=== PATIENT | male | born 1950 | race Caucasian/White ===

== ENCOUNTER 2018-03-19 17:22 | Inpatient (IN) | payer MEDICARE, MEDICAID ==
[2018-03-19 18:52] LABS: % BASOPHILS 1.1 % (0.0-2.0); % EOSINOPHILS 9.1 % (0.0-5.0); % LYMPHOCYTES 36.3 % (20.0-50.0); % NEUTROPHILS 45.5 % (40.0-80.0); EOSINOPHILE ABSOLUTE 0.3 Th/cmm (0.1-0.4); HEMATOCRIT 42.4 % (41.0-60); HEMOGLOBIN 14.3 gm/dL (12-16); LYMPHOCYTE ABSOLUTE 1.3 Th/cmm (1.5-3.0); MEAN CELL VOLUME 89.9 fl (80-99); MEAN CORPUSCULAR HEMOGLOBIN 30.2 pg (27.0-31.0); MEAN CORPUSCULAR HGB CONC 33.6 pg (28.0-36.0); MEAN PLATELET VOLUME 8.2 fl; MONOCYTE ABSOLUTE 0.3 Th/cmm (0.3-1.0); NEUTROPHILE ABSOLUTE 1.6 Th/cmm (1.8-8.0); PLATELET COUNT 188 Th/cmm (150-400); RED BLOOD COUNT 4.72 Mil/cmm (3.80-5.80); RED CELL DISTRIBUTION WIDTH 13.1 % (11.5-20.0)
[2018-03-19 19:02] LABS: WHITE BLOOD COUNT 3.5 Th/cmm (4.8-10.8)
[2018-03-19 19:12] LABS: ALBUMIN 3.7 gm/dL (4.2-5.5); ALKALINE PHOSPHATASE 61 U/L (34-104); ANION GAP 9.5 (7.0-16.0); BILIRUBIN,TOTAL 0.4 mg/dL (0.3-1.0); BUN - UREA NITROGEN 14 mg/dL (7-25); CALCIUM SERUM 9.3 mg/dL (8.6-10.3); CARBON DIOXIDE 29.2 mEq/L (21.0-31.0); CHLORIDE 102 mEq/L (98-107); CREATININE - SERUM 0.7 mg/dL (0.7-1.3); GFR AFRICAN-AMERICAN > 60.0 ml/min (>90); GFR NON AFRICAN-AMERICAN > 60.0 ml/min; GLUCOSE 141 mg/dL (70-105); LIPASE 27 U/L (11-82); POTASSIUM SERUM 3.7 mEq/L (3.5-5.1); SGOT 189 U/L (13-39); SGPT/ALT 194 U/L (7-52); SODIUM SERUM 137 mEq/L (136-145); TOTAL PROTEIN,SERUM 7.3 gm/dL (6.0-8.3)
[2018-03-19 19:15] LABS: BILIRUBIN,DIRECT 0.09 mg/dL (0.0-0.2)
[2018-03-19 20:11] VITALS: BP 139/65
[2018-03-19] MEDS ORDERED: Maalox 30 mL Cup PO PRN ×2 (20:11→22:17)
[2018-03-19] MEDS ORDERED: Magnesium Hydroxide (MOM) 30 mL UDC PO PRN (20:11)
[2018-03-19] MEDS ORDERED: Pneumococcal Vaccine 0.5 mL Vial IM ONE (21:40)
[2018-03-19] MEDS ORDERED: Albuterol Nebulizer 2.5mg/3mL HHN PRN (22:17)
[2018-03-19] MEDS ORDERED: guaiFENesin 200 MG/10 ML UDC PO PRN (22:17)
[2018-03-19] MEDS ORDERED: Ipratropium Neb 0.5 mg/2.5 mL UD HHN PRN (22:17)
[2018-03-20] MEDS ORDERED: Haloperidol Lactate 5 mg/mL 1mL Vial IM ONE (06:25)
--- NOTE | 2018-03-20 07:55 | Diagnostic Imaging Report ---
CHEST X-RAY: AP view INDICATION: Mass COMPARISON: None FINDINGS: Bibasal atelectatic changes are noted. There is no focal consolidation or pleural effusions The heart is normal in size. Degenerative changes of the spine are noted. IMPRESSION: Bibasal atelectatic changes. No focal consolidation identified. No obvious mass lesion identified. Note that the sensitivity of x-rays for detection of pulmonary nodules and masses is low. If there is clinical concern or history of malignancy, CT examination is recommended for further assessment.
[2018-03-20] MEDS: Multivitamin Tab PO SCH (08:20)
--- NOTE | 2018-03-20 13:14 | Internal Medicine Prog Note ---
Internal Medicine Subjective - Subjective Service Date: 03/20/18 ([facility] [id number]) Internal Medicine Objective - Results Result Diagrams: 03/19/18 18:44 03/19/18 18:44 Recent Labs: Laboratory Last Values WBC 3.5 Th/cmm (4.8-10.8) L 03/19/18 18:44 RBC 4.72 Mil/cmm (3.80-5.80) 03/19/18 18:44 Hgb 14.3 gm/dL (12-16) 03/19/18 18:44 Hct 42.4 % (41.0-60) 03/19/18 18:44 MCV 89.9 fl (80-99) 03/19/18 18:44 MCH 30.2 pg (27.0-31.0) 03/19/18 18:44 MCHC Differential 33.6 pg (28.0-36.0) 03/19/18 18:44 RDW 13.1 % (11.5-20.0) 03/19/18 18:44 Plt Count 188 Th/cmm (150-400) 03/19/18 18:44 MPV 8.2 fl 03/19/18 18:44 Neutrophils % 45.5 % (40.0-80.0) 03/19/18 18:44 Lymphocytes % 36.3 % (20.0-50.0) 03/19/18 18:44 Monocytes % 8.0 % (2.0-10.0) 03/19/18 18:44 Eosinophils % 9.1 % (0.0-5.0) H 03/19/18 18:44 Basophils % 1.1 % (0.0-2.0) 03/19/18 18:44 Sodium 137 mEq/L (136-145) 03/19/18 18:44 Potassium 3.7 mEq/L (3.5-5.1) 03/19/18 18:44 Chloride 102 mEq/L (98-107) 03/19/18 18:44 Carbon Dioxide 29.2 mEq/L (21.0-31.0) 03/19/18 18:44 Anion Gap 9.5 (7.0-16.0) 03/19/18 18:44 BUN 14 mg/dL (7-25) 05/08/18 18:44 Creatinine 0.7 mg/dL (0.7-1.3) 03/19/18 18:44 Est GFR ( Amer) > 60.0 ml/min (>90) 03/19/18 18:44 Est GFR (Non-Af Amer) > 60.0 ml/min 03/19/18 18:44 BUN/Creatinine Ratio 20.0 03/19/18 18:44 Glucose 141 mg/dL (70-105) H 03/19/18 18:44 Calcium 9.3 mg/dL (8.6-10.3) 03/19/18 18:44 Magnesium 2.0 mg/dL (1.9-2.7) 03/19/18 18:44 Total Bilirubin 0.4 mg/dL (0.3-1.0) 03/19/18 18:44 Direct Bilirubin 0.09 mg/dL (0.0-0.2) 03/19/18 18:44 AST 189 U/L (13-39) H 03/19/18 18:44 ALT 194 U/L (7-52) H 03/19/18 18:44 Alkaline Phosphatase 61 U/L (34-104) 03/19/18 18:44 Total Protein 7.3 gm/dL (6.0-8.3) 03/19/18 18:44 Albumin 3.7 gm/dL (4.2-5.5) L 03/19/18 18:44 Globulin 3.6 gm/dL 03/19/18 18:44 Albumin/Globulin Ratio 1.0 (1.0-1.8) 03/19/18 18:44 Lipase 27 U/L (11-82) 03/19/18 18:44 - Physical Exam Vitals and I&O: Vital Signs Temp 98.7 F 03/20/18 05:57 Pulse 84 03/20/18 05:57 Resp 20 03/20/18 05:57 BP 165/83 03/20/18 05:57 Pulse Ox 95 03/20/18 05:57 Intake & Output 03/19/18 03/20/18 03/20/18 18:59 06:59 18:59 Intake Total 280 Balance 280 Intake: Oral 280 Active Medications: Current Medications Acetaminophen (Tylenol) 650 mg PO Q4HR PRN PRN Reason: Mild Pain / Temp above 100 Stop: 05/18/18 20:10 Al Hydrox/Mg Hydrox/Simethicone (Maalox) 30 ml PO Q4HR PRN PRN Reason: GI DISTRESS Stop: 05/18/18 20:10 Albuterol Sulfate (Albuterol 2.5mg/3ml Neb Ud) 2.5 mg HHN Q2HRT PRN PRN Reason: Shortness of Breath or Wheeze Stop: 05/18/18 22:16 Aspirin (Ecotrin) 81 mg PO DAILY [facility] Stop: 05/19/18 08:59 Last Admin: 03/20/18 08:20 Dose: Not Given Guaifenesin (Robitussin) 200 mg PO Q4HR PRN PRN Reason: Cough or Congestion Stop: 05/18/18 22:16 Ipratropium [place] (Atrovent Neb 0.5mg/2.5ml) 0.5 mg HHN Q2HRT PRN PRN Reason: Shortness of Breath or Wheeze Stop: 05/18/18 22:16 Lorazepam (Ativan) 0.5 mg PO Q4HR PRN; Protocol PRN Reason: Anxiety Stop: 04/18/18 20:10 Magnesium Hydroxide (Milk Of Magnesia) 30 ml PO HS PRN PRN Reason: Constipation Multivitamins/Vitamin C (Theragran) 1 tab PO DAILY [facility] Stop: 05/19/18 08:59 Last Admin: 03/20/18 08:20 Dose: Not Given Zolpidem Tartrate (Ambien) 5 mg PO HS PRN PRN Reason: Insomnia Stop: 05/18/18 20:10
--- NOTE | 2018-03-20 15:35 | History & Physical ---
ADMIT DATE: 03/20/2018 HISTORY OF PRESENT ILLNESS: This is a 68-year-old male who is admitted to the [facility], who is on 5150 due to swinging golf club towards children at the park. Upon examination, the patient is awake, alert, sexually inappropriate. PAST MEDICAL HISTORY: Psychosis. PAST SURGICAL HISTORY: None per patient. ALLERGIES: No known drug allergies. SOCIAL HISTORY: The patient smokes cigarettes. Denies any alcohol or illicit drug usage. FAMILY HISTORY: Noncontributory. REVIEW OF SYSTEMS: Unable to obtain at this time. The patient is uncooperative answering questions. PHYSICAL EXAMINATION: GENERAL: The patient is well-developed, well-nourished, in no apparent distress. VITAL SIGNS: Temperature 98.7, heart rate 84, blood pressure 165/83, respirations 20, O2 95%. HEENT: Head normocephalic, atraumatic. NECK: Supple. No mass. LUNGS: Clear bilaterally. HEART: Regular rate and rhythm. ABDOMEN: Soft, nontender. LABORATORY DATA: WBC 3.5, H and H 14.3 and 42.4, platelet of 188. Sodium 137, potassium 3.7, chloride 102, BUN 14, creatinine 0.7, glucose of 141. Albumin 3.7. The patient had a chest x-ray done in the ER and the impression is bibasilar atelectatic changes, no focal consolidation identified. No obvious mass lesion identified. ASSESSMENT: Leukopenia, mild protein-calorie malnutrition, psychosis. PLAN: We will get patient's baseline lipid panel, hemoglobin A1c. We will wait for patient's urinalysis results. We will get hepatitis panel. We will continue to follow this patient. JOB# [id number]
--- NOTE | 2018-03-20 17:42 | ER Physician Documentation ---
DATE OF SERVICE: 03/19/2018 HISTORY OF PRESENT ILLNESS: The patient has been given 5150 because the patient came from the long-term and it is written over here that the patient was swinging a golf club ball at the [employer] and that is why he is on 5150. The patient came from [facility]. The patient will be under Dr. Juarez and Dr. Brown. The patient was sent over here. The patient is not talking and giving any history. The patient was sent over here for medical evaluation. The patient does not answer any significant questions, tries to give me all other history about his going here and going there. The patient has no symptoms of killing anybody. No symptoms of killing himself. The patient was seen by the triage nurse. PHYSICAL EXAMINATION: VITAL SIGNS: Temperature 97.9, pulse 85, respirations 16, blood pressure 166/72, and oxygen saturation 97%. Height is 5 feet 9 inches, weight 150 pounds. The patient has psychosis. The patient's date of is 1950. Medical number is [id number]. number is [id number]. The patient came from the long-term. The history was taken by reviewing most of the things from the chart and not from the patient because he is not very cooperative in giving any history. REVIEW OF SYSTEMS: He is not giving any history except for the fracture in the left ankle where he has a lyla in place. He had two surgery in the left ankle. Otherwise, no other complaints. He is again complaining in the referral sheet, says he is challenging and swinging a golf club at the [employer]. Diagnosis is psychosis, current location is [facility], telephone #[phone]. The patient's finger is verified. The patient medical doctor is Dr. Brown and the patient's psychiatrist's name is Dr. Juarez. The patient's disposition, he will be admitted. Once I find out that the patient does not have any medical problem, the patient will be sent for psychiatric evaluation and treatment. The patient was getting at the other place Atarax 0.5 mg p.r.n. p.o., was given ____ 50 mg p.r.n. p.o. for increased agitation and anxiety. Around 8:55 after 1 hour, the patient's blood pressure was 157/75, decreased agitation, but remains delusional, disorganized, anxious, making bizarre statements. The patient wanted to communicate with me and asked me many questions and it was told that we will discuss more history about him tomorrow, but at the present moment, I need to make sure that I take care of him. He is white. The patient's review of systems could not be obtained. The patient does not say. Personal history negron according to him, he was and he said he has a son just to give the son his name, so he can join the [employer]. He is unemployed. Education negron, he has masters in something whether this is true or not, I am not sure. In the Emergency notification information to be going ____ relationship is other. . The patient's physical condition is homeless and his physical address is [address] [place] [address]. Family phone #[phone]. The patient's date of is 1950. He does speak Tuvaluan. He has a choice Medicare eligibility. The patient has Medicare part D also. The patient's past history otherwise is benign and negative. The patient does not answer whether he was admitted at another facility or not is not submitted. The patient's EKG was done, which showed normal sinus rhythm with minor nonspecific ST changes, poor R-wave progression from V1-V3. One cannot definitely rule out any myocardial infarction. I doubt it, but it is possible that the patient can have a myocardial infarction on the chest. The patient does not have any surgical scar. The patient never had any myocardial infarctions and looking at this EKG, I cannot say that this has myocardial infarction as the R wave from V3-V4 is only 5 or 6 mm, it should be more than that to call it as a possible myocardial infarction. He is disorganized, anxious, bizarre statements. CURRENT MEDICATIONS. I told you if I find something else, I will let you know. PHYSICAL EXAMINATION: GENERAL: The patient appears to be awake, alert, oriented, not in any acute cardiorespiratory distress. The patient appears to be at least 10 years older than the stated age. HEENT: Conjunctivae pink. Sclerae white. HEENT: Normal. NECK: Jugular venous pressure is normal. Carotids are normal. Normal uplift. EXTREMITIES: On the left leg, the patient has a surgical scar and the patient has a two surgery done on the left ankle and on the right calf, the patient has a fracture, but no history of any metal implants in the right side. The patient is unemployed as I mentioned earlier. The patient has some home health and hospice, home health certification is present. The above person's condition was called to the attention of the hospital staff and [employer] offices from [facility], responded to 911 calls repeating client was challenging and swinging a golf club with the children, officers were able to engage and detain client at the [facility] for mental evaluation. Upon evaluation, the client reports becoming upset after his ____ was not in place, he has left in the night before 911 called and officers reported, accusing them, his feelings so far client endorse having a history of mood swings and health symptoms,. So, the patient was seen by the hospital police detention attendant and the patient was referred over here. The patient's ability is noncompliant. Primary ICD code #F29, unspecific psychosis. Let us see if I can find some more detailed history. No more history is detected. PHYSICAL EXAMINATION: GENERAL: The patient appears to be awake, alert, oriented, not in any acute distress. General exam is benign and negative as I mentioned surgical scar in the left lower extremity at the ankle is present and the patient's general exam is otherwise normal. NECK: Clear. There is no evidence of any meningeal signs. CHEST: Clear. No rales, rhonchi, or bronchial breathing. ABDOMEN: Soft, benign, and negative. Liver, spleen not enlarged. No peripheral edema in the abdominal cavity. CENTRAL NERVOUS SYSTEM: The patient has psychosis, but he does not want to kill anybody, he does not want to kill himself at the present moment. The patient was angry, was given some food, two sandwiches. One sandwich I gave him personally, tuna sandwiches and one was given by the nurse. The patient's vital signs were temperature was 97.9, pulse of 85, respirations 16, blood pressure 166/72, and oxygen saturation 97%. Height is 5 feet 9 inches, weight is 150 pounds. The patient takes drug according to them, they wrote methamphetamine. Chest appears to be clear without any rales, rhonchi, or bronchial breathing. Trachea being central. No emphysematous chest wall. No deformity of the chest wall. No pacemaker on the chest wall. No scar on the chest wall. Heart reveals PMI is located in the fifth intercostal space in the midclavicular line. S1, S2 are normal. Third heart sound is absent. Fourth heart sound is present. No abnormal murmur. There is no diastolic abnormal murmur. No systolic abnormal murmur is found. Central nervous system is otherwise psychosis, but otherwise sitting on the ____ on the belly and in the upper part of the abdomen, there are some black campbell seen on the belly. He does not know why it is. He says it may be allergic to the drugs or whatever he does not know. He does not give a dam about why it is there. On the right testicle, the patient has what looks like the right testicle is removed and a ball or something like that is inserted over there that he did not let me touch it or come close but he shows me from a distance and this is what it looks like from a distance. The patient's abdomen is otherwise soft, benign, and negative. Liver, spleen not enlarged. No free fluid in the abdominal cavity. Central nervous system is within normal limits. CLINICAL IMPRESSION: 1. The patient has psychosis. 2. The patient has left ankle joint injury and surgery twice, and the patient has a metal lyla in the left ankle for surgery. 3. The patient has an injury to the right ankle also. 4. The patient has multiple black colored scars of what reason whether it is reason being drug is not known. 5. The patient was swinging a golf ball at the [employer], hence the police called and kept him under 5150 and medically, the patient seems to be clear. Labs have been ordered. If the labs are okay, then, the patient could go to the psychiatric coe. The patient was angry and the patient's medical doctor is Dr. Bronw and the patient's psychiatric Dr. Juarez. The patient will be admitted. To the best of my knowledge, the patient came from [facility], telephone #[phone]. Once we get the lab reports, we will try and send the patient to the ____. JOB# [id number]
--- NOTE | 2018-03-21 00:37 | Psychosocial Evaluation ---
DATE OF SERVICE: 03/20/2018 IDENTIFYING DATA: The patient is a 68-year-old male, admitted here on a 5150 as a danger to others. CHIEF COMPLAINT: "I do not know." HISTORY OF PRESENT ILLNESS: This is the first psychiatric hospitalization to the [facility] for this patient who has been admitted here on a 5150 as a danger to others. As per the information, [employer] officers responded to the [place] [facility] responding to the 911 calls regarding this patient who is challenging and swinging a golf club at the [facility]. During the evaluation, the patient was not able to provide much of information and the patient has been very much upset and the patient had to be medicated. As per the information, the patient is reported to have gotten upset because he could not find his guitar where he has left the night before and the patient is reported to be very irritable and started to swing a golf club at the ____ and accusing them of stealing his guitar. The patient has been very irritable and angry. The patient is very disheveled at the time of the evaluation and is not able to care for self. PAST PSYCHIATRIC HISTORY: Details are not known. MEDICAL HISTORY: Physical examination is requested by Dr. Brown. SUBSTANCE ABUSE HISTORY: The patient is not providing any history of substance abuse. LEGAL PROBLEMS: None at this time. PHYSICAL AND SEXUAL ABUSE HISTORY: Details are not known. MENTAL STATUS EXAMINATION: The patient is 68 years old, looking his stated age, well-built, superficially cooperative. Eye contact is poor. Mood is noted to be irritable. Affect is constricted. Insight and judgment at this time are noted to be impaired. Impulse control seems to be limited. The patient has been having difficult time to cope with the stress. The patient is very paranoid and the patient is getting easily irritable. The patient has been very angry and upset and does not want to get into the details of what brought him in here. The patient has been given a dose of Haldol to contain his aggressive behavior. In view of his psychosis, I have decided to start the patient on 25 mg of the Seroquel at night time and encouraged the patient to verbalize the concerns rather than to act out. ESTIMATED LENGTH OF STAY: 5-7 days. DISCHARGE CRITERIA: When the patient is no longer a threat to self or others and will be able to cope up with the stress. JOB# [id number]
[2018-03-21 08:00] LABS: CHOLESTEROL 139 mg/dL (<200); HDL -HIGH DENSITY LIPOPROTEIN 44 mg/dL (23-92); TRIGLYCERIDES 106 mg/dL (<150)
[2018-03-21] MEDS: Multivitamin Tab PO SCH (09:25)
--- NOTE | 2018-03-21 13:22 | Internal Medicine Prog Note ---
Internal Medicine Subjective - Subjective Patient seen and examined:: with staff, chart reviewed Patient is:: awake, verbal, interactive, ambulating, denies any new complaints, agitated Patient Complaints of:: unable to sleep Per staff patient has:: no adverse event, no episodes of fall, eating well, tolerating meds Internal Medicine Objective - Results Result Diagrams: 03/19/18 18:44 03/19/18 18:44 Recent Labs: Laboratory Last Values WBC 3.5 Th/cmm (4.8-10.8) L 03/19/18 18:44 RBC 4.72 Mil/cmm (3.80-5.80) 03/19/18 18:44 Hgb 14.3 gm/dL (12-16) 03/19/18 18:44 Hct 42.4 % (41.0-60) 03/19/18 18:44 MCV 89.9 fl (80-99) 03/19/18 18:44 MCH 30.2 pg (27.0-31.0) 03/19/18 18:44 MCHC Differential 33.6 pg (28.0-36.0) 03/19/18 18:44 RDW 13.1 % (11.5-20.0) 03/19/18 18:44 Plt Count 188 Th/cmm (150-400) 03/19/18 18:44 MPV 8.2 fl 03/19/18 18:44 Neutrophils % 45.5 % (40.0-80.0) 03/19/18 18:44 Lymphocytes % 36.3 % (20.0-50.0) 03/19/18 18:44 Monocytes % 8.0 % (2.0-10.0) 03/19/18 18:44 Eosinophils % 9.1 % (0.0-5.0) H 03/19/18 18:44 Basophils % 1.1 % (0.0-2.0) 03/19/18 18:44 Sodium 137 mEq/L (136-145) 03/19/18 18:44 Potassium 3.7 mEq/L (3.5-5.1) 03/19/18 18:44 Chloride 102 mEq/L (98-107) 03/19/18 18:44 Carbon Dioxide 29.2 mEq/L (21.0-31.0) 03/19/18 18:44 Anion Gap 9.5 (7.0-16.0) 03/19/18 18:44 BUN 14 mg/dL (7-25) 03/19/18 18:44 Creatinine 0.7 mg/dL (0.7-1.3) 03/19/18 18:44 Est GFR ( Amer) > 60.0 ml/min (>90) 03/19/18 18:44 Est GFR (Non-Af Amer) > 60.0 ml/min 03/19/18 18:44 BUN/Creatinine Ratio 20.0 03/19/18 18:44 Glucose 141 mg/dL (70-105) H 03/19/18 18:44 Calcium 9.3 mg/dL (8.6-10.3) 03/19/18 18:44 Magnesium 2.0 mg/dL (1.9-2.7) 03/19/18 18:44 Total Bilirubin 0.4 mg/dL (0.3-1.0) 03/19/18 18:44 Direct Bilirubin 0.09 mg/dL (0.0-0.2) 03/19/18 18:44 AST 189 U/L (13-39) H 03/19/18 18:44 ALT 194 U/L (7-52) H 03/19/18 18:44 Alkaline Phosphatase 61 U/L (34-104) 03/19/18 18:44 Total Protein 7.3 gm/dL (6.0-8.3) 03/19/18 18:44 Albumin 3.7 gm/dL (4.2-5.5) L 03/19/18 18:44 Globulin 3.6 gm/dL 03/19/18 18:44 Albumin/Globulin Ratio 1.0 (1.0-1.8) 03/19/18 18:44 Triglycerides 106 mg/dL (<150) 03/21/18 07:30 Cholesterol 139 mg/dL (<200) 03/21/18 07:30 LDL Cholesterol Direct 75 mg/dL (75-193) 03/21/18 07:30 HDL Cholesterol 44 mg/dL (23-92) 03/21/18 07:30 Lipase 27 U/L (11-82) 03/19/18 18:44 - Physical Exam Vitals and I&O: Vital Signs Temp 98.7 F 03/20/18 05:57 Pulse 91 03/21/18 07:15 Resp 20 03/21/18 07:15 BP 165/83 03/20/18 05:57 Pulse Ox 95 03/21/18 07:15 Intake & Output 03/20/18 03/21/18 03/21/18 18:59 06:59 18:59 Intake Total 1200 150 Balance 1200 150 Intake: Oral 1200 150 Other: # Voids 2 # Bowel Movements 1 Active Medications: Current Medications Acetaminophen (Tylenol) 650 mg PO Q4HR PRN PRN Reason: Mild Pain / Temp above 100 Stop: 05/18/18 20:10 Al Hydrox/Mg Hydrox/Simethicone (Maalox) 30 ml PO Q4HR PRN PRN Reason: GI DISTRESS Stop: 05/18/18 20:10 Albuterol Sulfate (Albuterol 2.5mg/3ml Neb Ud) 2.5 mg HHN Q2HRT PRN PRN Reason: Shortness of Breath or Wheeze Stop: 05/18/18 22:16 Aspirin (Ecotrin) 81 mg PO DAILY [facility] Stop: 05/19/18 08:59 Last Admin: 03/21/18 09:25 Dose: 81 mg Guaifenesin (Robitussin) 200 mg PO Q4HR PRN PRN Reason: Cough or Congestion Stop: 05/18/18 22:16 Ipratropium [place] (Atrovent Neb 0.5mg/2.5ml) 0.5 mg HHN Q2HRT PRN PRN Reason: Shortness of Breath or Wheeze Stop: 05/18/18 22:16 Lorazepam (Ativan) 0.5 mg PO Q4HR PRN; Protocol PRN Reason: Anxiety Stop: 04/18/18 20:10 Last Admin: 03/21/18 09:31 Dose: 0.5 mg Magnesium Hydroxide (Milk Of Magnesia) 30 ml PO HS PRN PRN Reason: Constipation Multivitamins/Vitamin C (Theragran) 1 tab PO DAILY [facility] Stop: 05/19/18 08:59 Last Admin: 03/21/18 09:25 Dose: 1 tab Quetiapine Fumarate (Seroquel) 25 mg PO HS [facility] PRN Reason: Protocol Stop: 05/19/18 20:59 Zolpidem Tartrate (Ambien) 5 mg PO HS PRN PRN Reason: Insomnia Stop: 05/18/18 20:10 General: alert HEENT: NC/AT, PERRLA, poor dentition Neck: Supple, No JVD, No thyromegaly Lungs: CTAB Cardiovascular: RRR, Normal S1, Normal S2, without murmur Abdomen: soft, non-tender, non-distended, positive bowel sound Extremities: excoriation Internal Medicine Assmt/Plan - Assessment Assessment: leukopenia malnutrition sad hyperglycemia elev lft - Plan Plan: will send hep panel fall precaution will send aic jazzy harper
[2018-03-21] MEDS ORDERED: Haloperidol Lactate 5 mg/mL 1mL Vial ONE (16:27)
[2018-03-21] MEDS ORDERED: Haloperidol Lactate 5 mg/mL 1mL Vial IM STA (16:42)
--- NOTE | 2018-03-21 23:52 | Progress Notes ---
DATE: 03/21/2018 SUBJECTIVE: Staff was spoken to. The patient is interviewed. Mood is irritable. Affect is constricted. Insight and judgment noted to be still impaired. Impulse control is noted to be very poor. The patient's coping skills are noted to be very poor. The patient has been testing the limits. The patient has been getting into other people's rooms and has been trying to distribute all materials. The patient has no insight into his illness and the patient has no place to return to. ASSESSMENT: The patient is grossly psychotic and impulsive. PLAN: To continue the patient with the supportive therapy and place the patient on Seroquel 50 mg and follow the patient and he is not ready to be returned to a lower level of care. JOB# [id number]
[2018-03-22 08:12] LABS: HEP A AB IGM Negative (Negative); HEP B CORE IGM Negative (Negative); HEP B SURFACE AG QL Negative (Negative); HEP C ANTIBODY >11.0 s/co ratio (0.0-0.9)
[2018-03-22] MEDS: Multivitamin Tab PO SCH (09:29)
--- NOTE | 2018-03-22 13:28 | Internal Medicine Prog Note ---
Internal Medicine Subjective - Subjective Patient seen and examined:: with staff, chart reviewed Patient is:: awake, verbal, interactive, ambulating, denies any new complaints, agitated Patient Complaints of:: unable to sleep Per staff patient has:: no adverse event, no episodes of fall, eating well, tolerating meds Internal Medicine Objective - Results Result Diagrams: 03/19/18 18:44 03/19/18 18:44 Recent Labs: Laboratory Last Values WBC 3.5 Th/cmm (4.8-10.8) L 03/19/18 18:44 RBC 4.72 Mil/cmm (3.80-5.80) 03/19/18 18:44 Hgb 14.3 gm/dL (12-16) 03/19/18 18:44 Hct 42.4 % (41.0-60) 03/19/18 18:44 MCV 89.9 fl (80-99) 03/19/18 18:44 MCH 30.2 pg (27.0-31.0) 03/19/18 18:44 MCHC Differential 33.6 pg (28.0-36.0) 03/19/18 18:44 RDW 13.1 % (11.5-20.0) 03/19/18 18:44 Plt Count 188 Th/cmm (150-400) 03/19/18 18:44 MPV 8.2 fl 03/19/18 18:44 Neutrophils % 45.5 % (40.0-80.0) 03/19/18 18:44 Lymphocytes % 36.3 % (20.0-50.0) 03/19/18 18:44 Monocytes % 8.0 % (2.0-10.0) 03/19/18 18:44 Eosinophils % 9.1 % (0.0-5.0) H 03/19/18 18:44 Basophils % 1.1 % (0.0-2.0) 03/19/18 18:44 Sodium 137 mEq/L (136-145) 03/19/18 18:44 Potassium 3.7 mEq/L (3.5-5.1) 03/19/18 18:44 Chloride 102 mEq/L (98-107) 03/19/18 18:44 Carbon Dioxide 29.2 mEq/L (21.0-31.0) 03/19/18 18:44 Anion Gap 9.5 (7.0-16.0) 03/19/18 18:44 BUN 14 mg/dL (7-25) 03/19/18 18:44 Creatinine 0.7 mg/dL (0.7-1.3) 03/19/18 18:44 Est GFR ( Amer) > 60.0 ml/min (>90) 03/19/18 18:44 Est GFR (Non-Af Amer) > 60.0 ml/min 03/19/18 18:44 BUN/Creatinine Ratio 20.0 03/19/18 18:44 Glucose 141 mg/dL (70-105) H 03/19/18 18:44 Hemoglobin A1c % 5.0 % (4.0-6.0) 03/21/18 07: Calcium 9.3 mg/dL (8.6-10.3) 03/19/18 18:44 Magnesium 2.0 mg/dL (1.9-2.7) 03/19/18 18:44 Total Bilirubin 0.4 mg/dL (0.3-1.0) 03/19/18 18:44 Direct Bilirubin 0.09 mg/dL (0.0-0.2) 03/19/18 18:44 AST 189 U/L (13-39) H 03/19/18 18:44 ALT 194 U/L (7-52) H 03/19/18 18:44 Alkaline Phosphatase 61 U/L (34-104) 03/19/18 18:44 Total Protein 7.3 gm/dL (6.0-8.3) 03/19/18 18:44 Albumin 3.7 gm/dL (4.2-5.5) L 03/19/18 18:44 Globulin 3.6 gm/dL 03/19/18 18:44 Albumin/Globulin Ratio 1.0 (1.0-1.8) 03/19/18 18:44 Triglycerides 106 mg/dL (<150) 03/21/18 07:30 Cholesterol 139 mg/dL (<200) 03/21/18 07:30 LDL Cholesterol Direct 75 mg/dL (75-193) 03/21/18 07:30 HDL Cholesterol 44 mg/dL (23-92) 03/21/18 07:30 Lipase 27 U/L (11-82) 03/19/18 18:44 Hepatitis A IgM Ab Negative (Negative) 03/21/18 07:30 Hep Bs Antigen Negative (Negative) 03/21/18 07:30 Hep B Core IgM Ab Negative (Negative) 03/21/18 07:30 Hepatitis C Antibody >11.0 s/co ratio (0.0-0.9) H 03/21/18 07:30 - Physical Exam Vitals and I&O: Vital Signs Temp 97.2 F 03/22/18 06:24 Pulse 79 03/22/18 08:02 Resp 20 03/22/18 08:02 BP 144/80 03/22/18 06:24 Pulse Ox 95 03/22/18 08:02 Intake & Output 03/21/18 03/22/18 03/22/18 18:59 06:59 18:59 Intake Total 120 Balance 120 Intake: Oral 120 Other: # Voids 2 Active Medications: Current Medications Acetaminophen (Tylenol) 650 mg PO Q4HR PRN PRN Reason: Mild Pain / Temp above 100 Stop: 05/18/18 20:10 Al Hydrox/Mg Hydrox/Simethicone (Maalox) 30 ml PO Q4HR PRN PRN Reason: GI DISTRESS Stop: 05/18/18 20:10 Albuterol Sulfate (Albuterol 2.5mg/3ml Neb Ud) 2.5 mg HHN Q2HRT PRN PRN Reason: Shortness of Breath or Wheeze Stop: 05/18/18 22:16 Aspirin (Ecotrin) 81 mg PO DAILY ARIES Stop: 05/19/18 08:59 Last Admin: 03/22/18 09:29 Dose: 81 mg Guaifenesin (Robitussin) 200 mg PO Q4HR PRN PRN Reason: Cough or Congestion Stop: 05/18/18 22:16 Ipratropium [place] (Atrovent Neb 0.5mg/2.5ml) 0.5 mg HHN Q2HRT PRN PRN Reason: Shortness of Breath or Wheeze Stop: 05/18/18 22:16 Lorazepam (Ativan) 0.5 mg PO Q4HR PRN; Protocol PRN Reason: Anxiety Stop: 04/18/18 20:10 Last Admin: 03/21/18 09:31 Dose: 0.5 mg Magnesium Hydroxide (Milk Of Magnesia) 30 ml PO HS PRN PRN Reason: Constipation Multivitamins/Vitamin C (Theragran) 1 tab PO DAILY ARIES Stop: 05/19/18 08:59 Last Admin: 03/22/18 09:29 Dose: 1 tab Mupirocin (Bactroban Oint) 1 appl NS BID ARIES Stop: 03/26/18 09:01 Last Admin: 03/22/18 09:29 Dose: 1 appl Quetiapine Fumarate (Seroquel) 50 mg PO HS ARIES PRN Reason: Protocol Stop: 05/20/18 18:49 Last Admin: 03/21/18 20:52 Dose: 50 mg Zolpidem Tartrate (Ambien) 5 mg PO HS PRN PRN Reason: Insomnia Stop: 05/18/18 20:10 Last Admin: 03/21/18 20:53 Dose: 5 mg General: alert HEENT: NC/AT, PERRLA, poor dentition Neck: Supple, No JVD, No thyromegaly Lungs: CTAB Cardiovascular: RRR, Normal S1, Normal S2, without murmur Abdomen: soft, non-tender, non-distended, positive bowel sound Extremities: excoriation Internal Medicine Assmt/Plan - Assessment Assessment: leukopenia malnutrition sad hyperglycemia elev lft - Plan Plan: will send hep panel fall precaution will send maddie purcell rn
--- NOTE | 2018-03-22 22:09 | Consultation ---
DATE OF CONSULTATION: 03/22/2018 TYPE OF CONSULTATION: Psychology. REFERRING PHYSICIAN: Dr. Bettina Juarez. HISTORY OF PRESENT ILLNESS: The patient is a 68-year-old male. The patient is admitted here on a 5150 hold as a danger to others. The following is by review of the medical record as well as by staff report. The record indicates the patient was originally contacted by [employer] officers, who were responding to 911 calls regarding the patient. The report indicates the patient had been swinging a golf club at [place] at [facility]. The patient denied this information. Upon interview the patient presents as resistant, argumentative, and verbally abusive. The patient is easily agitated and exhibited yelling and screaming episodes including profanity. The patient is severely irritable and angry and the patient did not respond to the majority of the clinical interview questions. The patient did not answer questions about suicidal ideation or homicidal ideation, plan, and intention. The patient is unable to verbally contract for safety for no self-harm or harm to others. PAST MEDICAL HISTORY: Please see history and physical by Dr. Brown. PAST PSYCHIATRIC HISTORY: The patient did not answer this question. There are no records available at the time of his clinical interview. SUBSTANCE ABUSE HISTORY: The patient did not answer these questions. PSYCHOSOCIAL HISTORY: The patient refused to answer any questions regarding his occupational or educational history or latter day affiliation. The patient refused to answer questions about history of sexual or physical abuse or questions about legal problems and issues. CURRENT MEDICATIONS: Please see admission medication reconciliation. ALLERGIES: No known allergies. MENTAL STATUS EXAMINATION: The patient appears to be his stated age. The patient's attitude is uncooperative as well as guarded and suspicious. The patient's speech includes yelling episodes and verbal abuse. The patient is using profanity most of the time. The patient has responded "it's none of your (expletive) business" to the majority of the clinical interview questions. Eye contact is poor.Mood is irritable and angry. Affect is animated. The patient did not respond to questions about experiencing auditory or visual hallucinations or delusions. However, the patient presents as possibly experiencing paranoid delusions. The patient did not participate in the memory assessment. The patient did not participate in interpretation of proverbs. Sensorium is alert and oriented to self and place only. With respect to the patient's outbursts, the patient is verbalizing possible paranoid ideation. The patient is easily agitated with no impulse control. The patient is verbally abusive, using profanity towards staff as well as other residents. The patient according to staff has threatened physical violence towards staff members. The patient's behavior is aggressive and physically intimidating. The patient's behavior has been unredirectable and uncontainable on the unit. The patient has been wandering into other patients' rooms and needs constant redirection, which is mostly ineffective. The patient was given emergency medicine, which seemed to be effective for a few hours. The patient returned to the aforementioned aggressive behavior. The patient's insight and judgment are impaired. DIAGNOSTIC IMPRESSION: AXIS I: 1. Provisional diagnosis of psychosis, not otherwise specified; 2. Provisional diagnosis of impulse control disorder, not otherwise specified. AXIS II: Deferred; possible borderline traits. AXIS III: Please see history and physical by Dr. Brown. TREATMENT PLAN: The patient has been seen by Dr. Juarez for psychiatric evaluation and for the management of the patient's psychotropic medications. The patient has been threatening others on the unit with physical violence. The patient is constantly using profanity, is verbally abusive and aggressive to other patients as well as staff members. The patient is not responding to emergency medication. The patient is not responding to behavioral redirection or de-escalation or limit-setting. It has been discussed with psychologist social as well as the charge entry specialist and the psychiatrist that the patient perhaps could be transferred to a [place] [facility] facility. This is being considered. Presently, the patient is resisting all care and treatment and interventions. The patient declined any Psychology Services. JOB# [id number] KAREL
--- NOTE | 2018-03-22 22:47 | Progress Notes ---
DATE: 03/22/2018 PSYCHIATRIC PROGRESS NOTE SUBJECTIVE: Staff was spoken to. The patient is interviewed. Mood is noted to be anxious and constricted. The patient's insight and judgment at this time are noted to be improving. Impulse control seems to be fair. No side effects to the medications are noted. The patient has been having difficult time to cope with the stress. The patient is stating that he is more worried about his guitar that is lying in his boat. The patient is very disheveled and has no place to return to. account general manager has been requested to work with the patient. ASSESSMENT: The patient is still impulsive. PLAN: To continue the patient with the current medications and follow. JOB# [id number]
[2018-03-23] MEDS: Multivitamin Tab PO SCH (08:58)
--- NOTE | 2018-03-23 12:35 | Internal Medicine Prog Note ---
Internal Medicine Subjective - Subjective Patient seen and examined:: with staff, chart reviewed Patient is:: awake, verbal, interactive, ambulating, denies any new complaints, agitated Patient Complaints of:: unable to sleep Per staff patient has:: no adverse event, no episodes of fall, eating well, tolerating meds Internal Medicine Objective - Results Result Diagrams: 03/19/18 18:44 03/19/18 18:44 Recent Labs: Laboratory Last Values WBC 3.5 Th/cmm (4.8-10.8) L 03/19/18 18:44 RBC 4.72 Mil/cmm (3.80-5.80) 03/19/18 18:44 Hgb 14.3 gm/dL (12-16) 03/19/18 18:44 Hct 42.4 % (41.0-60) 03/19/18 18:44 MCV 89.9 fl (80-99) 03/19/18 18:44 MCH 30.2 pg (27.0-31.0) 03/19/18 18:44 MCHC Differential 33.6 pg (28.0-36.0) 03/19/18 18:44 RDW 13.1 % (11.5-20.0) 03/19/18 18:44 Plt Count 188 Th/cmm (150-400) 03/19/18 18:44 MPV 8.2 fl 03/19/18 18:44 Neutrophils % 45.5 % (40.0-80.0) 03/19/18 18:44 Lymphocytes % 36.3 % (20.0-50.0) 03/19/18 18:44 Monocytes % 8.0 % (2.0-10.0) 03/19/18 18:44 Eosinophils % 9.1 % (0.0-5.0) H 03/19/18 18:44 Basophils % 1.1 % (0.0-2.0) 03/19/18 18:44 Sodium 137 mEq/L (136-145) 03/19/18 18:44 Potassium 3.7 mEq/L (3.5-5.1) 03/19/18 18:44 Chloride 102 mEq/L (98-107) 03/19/18 18:44 Carbon Dioxide 29.2 mEq/L (21.0-31.0) 03/19/18 18:44 Anion Gap 9.5 (7.0-16.0) 03/19/18 18:44 BUN 14 mg/dL (7-25) 03/19/18 18:44 Creatinine 0.7 mg/dL (0.7-1.3) 03/19/18 18:44 Est GFR ( Amer) > 60.0 ml/min (>90) 03/19/18 18:44 Est GFR (Non-Af Amer) > 60.0 ml/min 03/19/18 18:44 BUN/Creatinine Ratio 20.0 03/19/18 18:44 Glucose 141 mg/dL (70-105) H 03/19/18 18:44 Hemoglobin A1c % 5.0 % (4.0-6.0) 03/21/18 07: Calcium 9.3 mg/dL (8.6-10.3) 03/19/18 18:44 Magnesium 2.0 mg/dL (1.9-2.7) 03/19/18 18:44 Total Bilirubin 0.4 mg/dL (0.3-1.0) 03/19/18 18:44 Direct Bilirubin 0.09 mg/dL (0.0-0.2) 03/19/18 18:44 AST 189 U/L (13-39) H 03/19/18 18:44 ALT 194 U/L (7-52) H 03/19/18 18:44 Alkaline Phosphatase 61 U/L (34-104) 03/19/18 18:44 Total Protein 7.3 gm/dL (6.0-8.3) 03/19/18 18:44 Albumin 3.7 gm/dL (4.2-5.5) L 03/19/18 18:44 Globulin 3.6 gm/dL 03/19/18 18:44 Albumin/Globulin Ratio 1.0 (1.0-1.8) 03/19/18 18:44 Triglycerides 106 mg/dL (<150) 03/21/18 07:30 Cholesterol 139 mg/dL (<200) 03/21/18 07:30 LDL Cholesterol Direct 75 mg/dL (75-193) 03/21/18 07:30 HDL Cholesterol 44 mg/dL (23-92) 03/21/18 07:30 Lipase 27 U/L (11-82) 03/19/18 18:44 Hepatitis A IgM Ab Negative (Negative) 03/21/18 07:30 Hep Bs Antigen Negative (Negative) 03/21/18 07:30 Hep B Core IgM Ab Negative (Negative) 03/21/18 07:30 Hepatitis C Antibody >11.0 s/co ratio (0.0-0.9) H 03/21/18 07:30 - Physical Exam Vitals and I&O: Vital Signs Temp 97.2 F 03/23/18 05:59 Pulse 84 03/23/18 07:39 Resp 20 03/23/18 07:39 BP 141/56 03/23/18 05:59 Pulse Ox 96 03/23/18 07:39 Intake & Output 03/22/18 03/23/18 03/23/18 18:59 06:59 18:59 Intake Total 1200 480 Balance 1200 480 Intake: Oral 1200 480 Other: # Voids 2 # Bowel Movements 1 Active Medications: Current Medications Acetaminophen (Tylenol) 650 mg PO Q4HR PRN PRN Reason: Mild Pain / Temp above 100 Stop: 05/18/18 20:10 Al Hydrox/Mg Hydrox/Simethicone (Maalox) 30 ml PO Q4HR PRN PRN Reason: GI DISTRESS Stop: 05/18/18 20:10 Albuterol Sulfate (Albuterol 2.5mg/3ml Neb Ud) 2.5 mg HHN Q2HRT PRN PRN Reason: Shortness of Breath or Wheeze Stop: 05/18/18 22:16 Aspirin (Ecotrin) 81 mg PO DAILY ARIES Stop: 05/19/18 08:59 Last Admin: 03/23/18 08:58 Dose: 81 mg Guaifenesin (Robitussin) 200 mg PO Q4HR PRN PRN Reason: Cough or Congestion Stop: 05/18/18 22:16 Ipratropium [place] (Atrovent Neb 0.5mg/2.5ml) 0.5 mg HHN Q2HRT PRN PRN Reason: Shortness of Breath or Wheeze Stop: 05/18/18 22:16 Lorazepam (Ativan) 0.5 mg PO Q4HR PRN; Protocol PRN Reason: Anxiety Stop: 04/18/18 20:10 Last Admin: 03/22/18 09:00 Dose: 0.5 mg Magnesium Hydroxide (Milk Of Magnesia) 30 ml PO HS PRN PRN Reason: Constipation Multivitamins/Vitamin C (Theragran) 1 tab PO DAILY ARIES Stop: 05/19/18 08:59 Last Admin: 03/23/18 08:58 Dose: 1 tab Mupirocin (Bactroban Oint) 1 appl NS BID ARIES Stop: 03/26/18 09:01 Last Admin: 03/23/18 08:58 Dose: 1 appl Quetiapine Fumarate (Seroquel) 50 mg PO HS ARIES PRN Reason: Protocol Stop: 05/20/18 18:49 Last Admin: 03/22/18 20:32 Dose: 50 mg Zolpidem Tartrate (Ambien) 5 mg PO HS PRN PRN Reason: Insomnia Stop: 05/18/18 20:10 Last Admin: 03/22/18 20:33 Dose: 5 mg General: alert HEENT: NC/AT, PERRLA, poor dentition Neck: Supple, No JVD, No thyromegaly Lungs: CTAB Cardiovascular: RRR, Normal S1, Normal S2, without murmur Abdomen: soft, non-tender, non-distended, positive bowel sound Extremities: excoriation Internal Medicine Assmt/Plan - Assessment Assessment: leukopenia malnutrition sad hyperglycemia elev lft - Plan Plan: will send hep panel fall precaution will send aic jazzy harper
--- NOTE | 2018-03-23 12:54 | Progress Notes ---
DATE: 03/23/2018 SUBJECTIVE: Staff was spoken to. The patient is interviewed. Mood is noted to be irritable. Affect is constricted. The patient's insight and judgment is noted to be still impaired. Impulse control seems to be limited. The patient is stating that he is going to lose his guitar and he should be out. janitor helper have been trying to look for the patient for the discharge, but the problem is that the patient has no place to return to and they are not able to verify the patient's address. ASSESSMENT: The patient is still gravely disabled and paranoid. PLAN: To continue the patient with the supportive therapy. Encouraged the patient to verbalize the concerns rather than to act out. JOB# [id number]
[2018-03-24] MEDS: Multivitamin Tab PO SCH (08:35)
--- NOTE | 2018-03-24 16:39 | Internal Medicine Prog Note ---
Internal Medicine Subjective - Subjective Patient seen and examined:: with staff, chart reviewed Patient is:: awake, verbal, interactive, ambulating, denies any new complaints, agitated Patient Complaints of:: unable to sleep Per staff patient has:: no adverse event, no episodes of fall, eating well, tolerating meds Internal Medicine Objective - Results Result Diagrams: 03/19/18 18:44 03/19/18 18:44 Recent Labs: Laboratory Last Values WBC 3.5 Th/cmm (4.8-10.8) L 03/19/18 18:44 RBC 4.72 Mil/cmm (3.80-5.80) 03/19/18 18:44 Hgb 14.3 gm/dL (12-16) 03/19/18 18:44 Hct 42.4 % (41.0-60) 03/19/18 18:44 MCV 89.9 fl (80-99) 03/19/18 18:44 MCH 30.2 pg (27.0-31.0) 03/19/18 18:44 MCHC Differential 33.6 pg (28.0-36.0) 03/19/18 18:44 RDW 13.1 % (11.5-20.0) 03/19/18 18:44 Plt Count 188 Th/cmm (150-400) 03/19/18 18:44 MPV 8.2 fl 03/19/18 18:44 Neutrophils % 45.5 % (40.0-80.0) 03/19/18 18:44 Lymphocytes % 36.3 % (20.0-50.0) 03/19/18 18:44 Monocytes % 8.0 % (2.0-10.0) 03/19/18 18:44 Eosinophils % 9.1 % (0.0-5.0) H 03/19/18 18:44 Basophils % 1.1 % (0.0-2.0) 03/19/18 18:44 Sodium 137 mEq/L (136-145) 03/19/18 18:44 Potassium 3.7 mEq/L (3.5-5.1) 03/19/18 18:44 Chloride 102 mEq/L (98-107) 03/19/18 18:44 Carbon Dioxide 29.2 mEq/L (21.0-31.0) 03/19/18 18:44 Anion Gap 9.5 (7.0-16.0) 03/19/18 18:44 BUN 14 mg/dL (7-25) 03/19/18 18:44 Creatinine 0.7 mg/dL (0.7-1.3) 03/19/18 18:44 Est GFR ( Amer) > 60.0 ml/min (>90) 03/19/18 18:44 Est GFR (Non-Af Amer) > 60.0 ml/min 03/19/18 18:44 BUN/Creatinine Ratio 20.0 03/19/18 18:44 Glucose 141 mg/dL (70-105) H 03/19/18 18:44 Hemoglobin A1c % 5.0 % (4.0-6.0) 03/21/18 07: Calcium 9.3 mg/dL (8.6-10.3) 03/19/18 18:44 Magnesium 2.0 mg/dL (1.9-2.7) 03/19/18 18:44 Total Bilirubin 0.4 mg/dL (0.3-1.0) 03/19/18 18:44 Direct Bilirubin 0.09 mg/dL (0.0-0.2) 03/19/18 18:44 AST 189 U/L (13-39) H 03/19/18 18:44 ALT 194 U/L (7-52) H 03/19/18 18:44 Alkaline Phosphatase 61 U/L (34-104) 03/19/18 18:44 Total Protein 7.3 gm/dL (6.0-8.3) 03/19/18 18:44 Albumin 3.7 gm/dL (4.2-5.5) L 03/19/18 18:44 Globulin 3.6 gm/dL 03/19/18 18:44 Albumin/Globulin Ratio 1.0 (1.0-1.8) 03/19/18 18:44 Triglycerides 106 mg/dL (<150) 03/21/18 07:30 Cholesterol 139 mg/dL (<200) 03/21/18 07:30 LDL Cholesterol Direct 75 mg/dL (75-193) 03/21/18 07:30 HDL Cholesterol 44 mg/dL (23-92) 03/21/18 07:30 Lipase 27 U/L (11-82) 03/19/18 18:44 Hepatitis A IgM Ab Negative (Negative) 03/21/18 07:30 Hep Bs Antigen Negative (Negative) 03/21/18 07:30 Hep B Core IgM Ab Negative (Negative) 03/21/18 07:30 Hepatitis C Antibody >11.0 s/co ratio (0.0-0.9) H 03/21/18 07:30 - Physical Exam Vitals and I&O: Vital Signs Temp 97.5 F 03/24/18 15:50 Pulse 79 03/24/18 15:50 Resp 20 03/24/18 15:50 BP 128/65 03/24/18 15:50 Pulse Ox 97 03/24/18 15:50 Intake & Output 03/23/18 03/24/18 03/24/18 18:59 06:59 18:59 Intake Total 1600 480 Output Total 4 Balance 1596 480 Intake: Oral 1600 480 Output: Urine 4 Other: # Voids 1 # Bowel Movements 1 Active Medications: Current Medications Acetaminophen (Tylenol) 650 mg PO Q4HR PRN PRN Reason: Mild Pain / Temp above 100 Stop: 05/18/18 20:10 Al Hydrox/Mg Hydrox/Simethicone (Maalox) 30 ml PO Q4HR PRN PRN Reason: GI DISTRESS Stop: 05/18/18 20:10 Albuterol Sulfate (Albuterol 2.5mg/3ml Neb Ud) 2.5 mg HHN Q2HRT PRN PRN Reason: Shortness of Breath or Wheeze Stop: 05/18/18 22:16 Aspirin (Ecotrin) 81 mg PO DAILY ARIES Stop: 05/19/18 08:59 Last Admin: 03/24/18 08:35 Dose: 81 mg Guaifenesin (Robitussin) 200 mg PO Q4HR PRN PRN Reason: Cough or Congestion Stop: 05/18/18 22:16 Ipratropium [place] (Atrovent Neb 0.5mg/2.5ml) 0.5 mg HHN Q2HRT PRN PRN Reason: Shortness of Breath or Wheeze Stop: 05/18/18 22:16 Lorazepam (Ativan) 0.5 mg PO Q4HR PRN; Protocol PRN Reason: Anxiety Stop: 04/18/18 20:10 Last Admin: 03/22/18 09:00 Dose: 0.5 mg Magnesium Hydroxide (Milk Of Magnesia) 30 ml PO HS PRN PRN Reason: Constipation Multivitamins/Vitamin C (Theragran) 1 tab PO DAILY ARIES Stop: 05/19/18 08:59 Last Admin: 03/24/18 08:35 Dose: 1 tab Mupirocin (Bactroban Oint) 1 appl NS BID ARIES Stop: 03/26/18 09:01 Last Admin: 03/24/18 08:35 Dose: 1 appl Quetiapine Fumarate (Seroquel) 50 mg PO HS ARIES PRN Reason: Protocol Stop: 05/20/18 18:49 Last Admin: 03/23/18 20:29 Dose: 50 mg Zolpidem Tartrate (Ambien) 5 mg PO HS PRN PRN Reason: Insomnia Stop: 05/18/18 20:10 Last Admin: 03/23/18 20:30 Dose: 5 mg General: alert HEENT: NC/AT, PERRLA, poor dentition Neck: Supple, No JVD, No thyromegaly Lungs: CTAB Cardiovascular: RRR, Normal S1, Normal S2, without murmur Abdomen: soft, non-tender, non-distended, positive bowel sound Extremities: excoriation Internal Medicine Assmt/Plan - Assessment Assessment: leukopenia malnutrition sad hyperglycemia elev lft - Plan Plan: will send hep panel fall precaution will send maddie purcell rn
--- NOTE | 2018-03-24 16:59 | Progress Notes ---
DATE: 03/24/2018 PSYCHIATRIC PROGRESS NOTE SUBJECTIVE: Staff was spoken to. The patient is interviewed. Mood is noted to be irritable. Affect is constricted. The patient's insight and judgment are noted to be still impaired. Impulse control seems to be fair today. The patient, however, has been testing the limit stating that he should not be in here, he should be on his boat. ASSESSMENT AND PLAN: The child support case officer has been trying to verify that he has a place to go and so far we are not able to verify anything. The patient is finally agreeing to go a [facility]. manager room has been working with him to see if we can look for a place and get him out. JOB# [id number]
[2018-03-25] MEDS: Multivitamin Tab PO SCH (09:31)
--- NOTE | 2018-03-25 11:29 | Internal Medicine Prog Note ---
Internal Medicine Subjective - Subjective Service Date: 03/25/18 Patient is:: awake, verbal, interactive, ambulating, denies any new complaints, agitated Patient Complaints of:: unable to sleep Per staff patient has:: no adverse event, no episodes of fall, eating well, tolerating meds Internal Medicine Objective - Results Result Diagrams: 03/19/18 18:44 03/19/18 18:44 Recent Labs: Laboratory Last Values WBC 3.5 Th/cmm (4.8-10.8) L 03/19/18 18:44 RBC 4.72 Mil/cmm (3.80-5.80) 03/19/18 18:44 Hgb 14.3 gm/dL (12-16) 03/19/18 18:44 Hct 42.4 % (41.0-60) 03/19/18 18:44 MCV 89.9 fl (80-99) 03/19/18 18:44 MCH 30.2 pg (27.0-31.0) 03/19/18 18:44 MCHC Differential 33.6 pg (28.0-36.0) 03/19/18 18:44 RDW 13.1 % (11.5-20.0) 03/19/18 18:44 Plt Count 188 Th/cmm (150-400) 03/19/18 18:44 MPV 8.2 fl 03/19/18 18:44 Neutrophils % 45.5 % (40.0-80.0) 03/19/18 18:44 Lymphocytes % 36.3 % (20.0-50.0) 03/19/18 18:44 Monocytes % 8.0 % (2.0-10.0) 03/19/18 18:44 Eosinophils % 9.1 % (0.0-5.0) H 03/19/18 18:44 Basophils % 1.1 % (0.0-2.0) 03/19/18 18:44 Sodium 137 mEq/L (136-145) 03/19/18 18:44 Potassium 3.7 mEq/L (3.5-5.1) 03/19/18 18:44 Chloride 102 mEq/L (98-107) 03/19/18 18:44 Carbon Dioxide 29.2 mEq/L (21.0-31.0) 03/19/18 18:44 Anion Gap 9.5 (7.0-16.0) 03/19/18 18:44 BUN 14 mg/dL (7-25) 03/19/18 18:44 Creatinine 0.7 mg/dL (0.7-1.3) 03/19/18 18:44 Est GFR ( Amer) > 60.0 ml/min (>90) 03/19/18 18:44 Est GFR (Non-Af Amer) > 60.0 ml/min 03/19/18 18:44 BUN/Creatinine Ratio 20.0 03/19/18 18:44 Glucose 141 mg/dL (70-105) H 03/19/18 18:44 Hemoglobin A1c % 5.0 % (4.0-6.0) 03/21/18 07: Calcium 9.3 mg/dL (8.6-10.3) 03/19/18 18:44 Magnesium 2.0 mg/dL (1.9-2.7) 03/19/18 18:44 Total Bilirubin 0.4 mg/dL (0.3-1.0) 03/19/18 18:44 Direct Bilirubin 0.09 mg/dL (0.0-0.2) 03/19/18 18:44 AST 189 U/L (13-39) H 03/19/18 18:44 ALT 194 U/L (7-52) H 03/19/18 18:44 Alkaline Phosphatase 61 U/L (34-104) 03/19/18 18:44 Total Protein 7.3 gm/dL (6.0-8.3) 03/19/18 18:44 Albumin 3.7 gm/dL (4.2-5.5) L 03/19/18 18:44 Globulin 3.6 gm/dL 03/19/18 18:44 Albumin/Globulin Ratio 1.0 (1.0-1.8) 03/19/18 18:44 Triglycerides 106 mg/dL (<150) 03/21/18 07:30 Cholesterol 139 mg/dL (<200) 03/21/18 07:30 LDL Cholesterol Direct 75 mg/dL (75-193) 03/21/18 07:30 HDL Cholesterol 44 mg/dL (23-92) 03/21/18 07:30 Lipase 27 U/L (11-82) 03/19/18 18:44 Hepatitis A IgM Ab Negative (Negative) 03/21/18 07:30 Hep Bs Antigen Negative (Negative) 03/21/18 07:30 Hep B Core IgM Ab Negative (Negative) 03/21/18 07:30 Hepatitis C Antibody >11.0 s/co ratio (0.0-0.9) H 03/21/18 07:30 - Physical Exam Vitals and I&O: Vital Signs Temp 98.4 F 03/25/18 05:44 Pulse 85 03/25/18 09:47 Resp 18 03/25/18 09:47 BP 143/78 03/25/18 05:44 Pulse Ox 95 03/25/18 09:47 Intake & Output 03/24/18 03/25/18 03/25/18 18:59 06:59 18:59 Intake Total 1500 480 Balance 1500 480 Intake: Oral 1500 480 Other: # Voids 3 2 # Bowel Movements 1 1 Active Medications: Current Medications Acetaminophen (Tylenol) 650 mg PO Q4HR PRN PRN Reason: Mild Pain / Temp above 100 Stop: 05/18/18 20:10 Al Hydrox/Mg Hydrox/Simethicone (Maalox) 30 ml PO Q4HR PRN PRN Reason: GI DISTRESS Stop: 05/18/18 20:10 Albuterol Sulfate (Albuterol 2.5mg/3ml Neb Ud) 2.5 mg HHN Q2HRT PRN PRN Reason: Shortness of Breath or Wheeze Stop: 05/18/18 22:16 Aspirin (Ecotrin) 81 mg PO DAILY ARIES Stop: 05/19/18 08:59 Last Admin: 03/25/18 09:31 Dose: 81 mg Guaifenesin (Robitussin) 200 mg PO Q4HR PRN PRN Reason: Cough or Congestion Stop: 05/18/18 22:16 Ipratropium [place] (Atrovent Neb 0.5mg/2.5ml) 0.5 mg HHN Q2HRT PRN PRN Reason: Shortness of Breath or Wheeze Stop: 05/18/18 22:16 Lorazepam (Ativan) 0.5 mg PO Q4HR PRN; Protocol PRN Reason: Anxiety Stop: 04/18/18 20:10 Last Admin: 03/22/18 09:00 Dose: 0.5 mg Magnesium Hydroxide (Milk Of Magnesia) 30 ml PO HS PRN PRN Reason: Constipation Multivitamins/Vitamin C (Theragran) 1 tab PO DAILY ARIES Stop: 05/19/18 08:59 Last Admin: 03/25/18 09:31 Dose: 1 tab Mupirocin (Bactroban Oint) 1 appl NS BID ARIES Stop: 03/26/18 09:01 Last Admin: 03/25/18 10:14 Dose: 1 appl Quetiapine Fumarate (Seroquel) 50 mg PO HS ARIES PRN Reason: Protocol Stop: 05/20/18 18:49 Last Admin: 03/24/18 20:29 Dose: 50 mg Zolpidem Tartrate (Ambien) 5 mg PO HS PRN PRN Reason: Insomnia Stop: 05/18/18 20:10 Last Admin: 03/23/18 20:30 Dose: 5 mg General: alert HEENT: NC/AT, PERRLA, poor dentition Neck: Supple, No JVD, No thyromegaly Lungs: CTAB Cardiovascular: RRR, Normal S1, Normal S2, without murmur Abdomen: soft, non-tender, non-distended, positive bowel sound Extremities: excoriation Internal Medicine Assmt/Plan - Assessment Assessment: leukopenia malnutrition sad hyperglycemia elev lft - Plan Plan: monitor glucose level fall precautions continue current plan of care
--- NOTE | 2018-03-26 04:44 | Progress Notes ---
DATE: 03/25/2018 SUBJECTIVE: Staff was spoken to. The patient is interviewed. Mood is noted to be irritable. Affect is constricted. The patient is stating that there is no reason for him to be in here and the patient is demanding for discharge. Staff is reporting that the patient has no place to return to, they are not able to get him to any long-term around. The patient wants to go to his boat and they are not ____ the patient's residence. ASSESSMENT: The patient is still gravely disabled. PLAN: To continue the patient with the supportive therapy. I encouraged the patient to verbalize the concerns rather than to act out. JOB# [id number]
--- NOTE | 2018-03-26 12:18 | Internal Medicine Prog Note ---
Internal Medicine Subjective - Subjective Patient seen and examined:: with staff, chart reviewed Patient is:: awake, verbal, interactive, ambulating, denies any new complaints, agitated Patient Complaints of:: unable to sleep Per staff patient has:: no adverse event, no episodes of fall, eating well, tolerating meds Internal Medicine Objective - Results Result Diagrams: 03/19/18 18:44 03/19/18 18:44 Recent Labs: Laboratory Last Values WBC 3.5 Th/cmm (4.8-10.8) L 03/19/18 18:44 RBC 4.72 Mil/cmm (3.80-5.80) 03/19/18 18:44 Hgb 14.3 gm/dL (12-16) 03/19/18 18:44 Hct 42.4 % (41.0-60) 03/19/18 18:44 MCV 89.9 fl (80-99) 03/19/18 18:44 MCH 30.2 pg (27.0-31.0) 03/19/18 18:44 MCHC Differential 33.6 pg (28.0-36.0) 03/19/18 18:44 RDW 13.1 % (11.5-20.0) 03/19/18 18:44 Plt Count 188 Th/cmm (150-400) 03/19/18 18:44 MPV 8.2 fl 03/19/18 18:44 Neutrophils % 45.5 % (40.0-80.0) 03/19/18 18:44 Lymphocytes % 36.3 % (20.0-50.0) 03/19/18 18:44 Monocytes % 8.0 % (2.0-10.0) 03/19/18 18:44 Eosinophils % 9.1 % (0.0-5.0) H 03/19/18 18:44 Basophils % 1.1 % (0.0-2.0) 03/19/18 18:44 Sodium 137 mEq/L (136-145) 03/19/18 18:44 Potassium 3.7 mEq/L (3.5-5.1) 03/19/18 18:44 Chloride 102 mEq/L (98-107) 03/19/18 18:44 Carbon Dioxide 29.2 mEq/L (21.0-31.0) 03/19/18 18:44 Anion Gap 9.5 (7.0-16.0) 03/19/18 18:44 BUN 14 mg/dL (7-25) 03/19/18 18:44 Creatinine 0.7 mg/dL (0.7-1.3) 03/19/18 18:44 Est GFR ( Amer) > 60.0 ml/min (>90) 03/19/18 18:44 Est GFR (Non-Af Amer) > 60.0 ml/min 03/19/18 18:44 BUN/Creatinine Ratio 20.0 03/19/18 18:44 Glucose 141 mg/dL (70-105) H 03/19/18 18:44 Hemoglobin A1c % 5.0 % (4.0-6.0) 03/21/18 07: Calcium 9.3 mg/dL (8.6-10.3) 03/19/18 18:44 Magnesium 2.0 mg/dL (1.9-2.7) 03/19/18 18:44 Total Bilirubin 0.4 mg/dL (0.3-1.0) 03/19/18 18:44 Direct Bilirubin 0.09 mg/dL (0.0-0.2) 03/19/18 18:44 AST 189 U/L (13-39) H 03/19/18 18:44 ALT 194 U/L (7-52) H 03/19/18 18:44 Alkaline Phosphatase 61 U/L (34-104) 03/19/18 18:44 Total Protein 7.3 gm/dL (6.0-8.3) 03/19/18 18:44 Albumin 3.7 gm/dL (4.2-5.5) L 03/19/18 18:44 Globulin 3.6 gm/dL 03/19/18 18:44 Albumin/Globulin Ratio 1.0 (1.0-1.8) 03/19/18 18:44 Triglycerides 106 mg/dL (<150) 03/21/18 07:30 Cholesterol 139 mg/dL (<200) 03/21/18 07:30 LDL Cholesterol Direct 75 mg/dL (75-193) 03/21/18 07:30 HDL Cholesterol 44 mg/dL (23-92) 03/21/18 07:30 Lipase 27 U/L (11-82) 03/19/18 18:44 Hepatitis A IgM Ab Negative (Negative) 03/21/18 07:30 Hep Bs Antigen Negative (Negative) 03/21/18 07:30 Hep B Core IgM Ab Negative (Negative) 03/21/18 07:30 Hepatitis C Antibody >11.0 s/co ratio (0.0-0.9) H 03/21/18 07:30 - Physical Exam Vitals and I&O: Vital Signs Temp 97.2 F 03/26/18 06:30 Pulse 84 03/26/18 07:20 Resp 18 03/26/18 07:40 BP 139/76 03/26/18 06:30 Pulse Ox 95 03/26/18 07:20 Intake & Output 03/25/18 03/26/18 03/26/18 18:59 06:59 18:59 Intake Total 1200 480 Balance 1200 480 Intake: Oral 1200 480 Other: # Voids 4 2 # Bowel Movements 1 Active Medications: Current Medications Acetaminophen (Tylenol) 650 mg PO Q4HR PRN PRN Reason: Mild Pain / Temp above 100 Stop: 05/18/18 20:10 Al Hydrox/Mg Hydrox/Simethicone (Maalox) 30 ml PO Q4HR PRN PRN Reason: GI DISTRESS Stop: 05/18/18 20:10 Albuterol Sulfate (Albuterol 2.5mg/3ml Neb Ud) 2.5 mg HHN Q2HRT PRN PRN Reason: Shortness of Breath or Wheeze Stop: 05/18/18 22:16 Aspirin (Ecotrin) 81 mg PO DAILY ARIES Stop: 05/19/18 08:59 Last Admin: 03/26/18 08:55 Dose: 81 mg Guaifenesin (Robitussin) 200 mg PO Q4HR PRN PRN Reason: Cough or Congestion Stop: 05/18/18 22:16 Ipratropium [place] (Atrovent Neb 0.5mg/2.5ml) 0.5 mg HHN Q2HRT PRN PRN Reason: Shortness of Breath or Wheeze Stop: 05/18/18 22:16 Lorazepam (Ativan) 0.5 mg PO Q4HR PRN; Protocol PRN Reason: Anxiety Stop: 04/18/18 20:10 Last Admin: 03/26/18 05:55 Dose: 0.5 mg Magnesium Hydroxide (Milk Of Magnesia) 30 ml PO HS PRN PRN Reason: Constipation Multivitamins/Vitamin C (Theragran) 1 tab PO DAILY ARIES Stop: 05/19/18 08:59 Last Admin: 03/25/18 09:31 Dose: 1 tab Quetiapine Fumarate (Seroquel) 50 mg PO HS ARIES PRN Reason: Protocol Stop: 05/20/18 18:49 Last Admin: 03/25/18 21:05 Dose: 50 mg Zolpidem Tartrate (Ambien) 5 mg PO HS PRN PRN Reason: Insomnia Stop: 05/18/18 20:10 Last Admin: 03/23/18 20:30 Dose: 5 mg General: alert HEENT: NC/AT, PERRLA, poor dentition Neck: Supple, No JVD, No thyromegaly Lungs: CTAB Cardiovascular: RRR, Normal S1, Normal S2, without murmur Abdomen: soft, non-tender, non-distended, positive bowel sound Extremities: excoriation Internal Medicine Assmt/Plan - Assessment Assessment: leukopenia malnutrition sad hyperglycemia elev lft - Plan Plan: will send hep panel fall precaution will send aic jazzy harper
--- NOTE | 2018-03-26 14:16 | Progress Notes ---
DATE: 03/26/2018 SUBJECTIVE: Staff was spoken to. The patient is interviewed. Mood is noted to be anxious. The patient is stating that he has been doing fairly well and he ____. He does not need to worry about it. The patient's coping skills are noted to be fair. The patient is not presenting with any threats to harm self or others. ASSESSMENT: The patient is stabilizing. PLAN: To discharge the patient today for followup on outpatient basis. JOB# [id number]
--- NOTE | 2018-03-27 20:43 | Discharge Summary ---
DATE OF DISCHARGE: 03/26/2018 IDENTIFYING DATA: The patient is a 68-year-old male admitted here on a 5150 as a danger to others. CHIEF COMPLAINT: "I don't know." DIAGNOSES AT THE TIME OF ADMISSION: AXIS I: Psychotic disorder, not otherwise specified. AXIS IB: Alcohol dependence. AXIS II: None. AXIS III: As per Dr. Brown. HOSPITAL COURSE AND RESPONSE TO TREATMENT: The patient has been observed on inpatient unit, provided with supportive psychotherapy. The patient has been placed on close monitoring and encouraged to verbalize the concerns. The patient has to be given a dose of Haldol for his aggressive behavior. The patient has been placed on Seroquel, which was gradually increased to 50 mg at bedtime. The patient started fairly well and the patient has been able to participate in the groups and verbalize the concerns and hence the patient was finally discharged on 03/26/2018 with recommendation that he is going to be seeking treatment on an outpatient basis. MENTAL STATUS EXAMINATION: At the time of discharge, the patient noted to be irritable. Affect is constricted. The patient's insight and judgment are noted to be improving. Impulse control seems to be fair. No side effects to the medications are noted. The patient is not presenting with any threats to harm self or others at the time of discharge. CONDITION OF DISCHARGE: Noted to be stable. DIAGNOSES AT THE TIME OF DISCHARGE: AXIS I: Mood disorder, not otherwise specified. AXIS IB: Alcohol dependence. AXIS II: None. AXIS III: None. AFTERCARE PLAN: The patient is discharged to [facility] to be followed up on an outpatient basis. PROGNOSIS: At the time of discharge is noted to be guarded. [facility]# [id number]
== END 2018-03-26 11:25 | disposition home or self-care (01) | DRG 885 ==
LOC: ER 17:22 → GERO2 19:24 → GERO 03-20 05:39
PROVIDERS: ADMIT Psychiatry & Neurology Psychiatry; ATTEND Psychiatry & Neurology Psychiatry
DX: F39 Unspecified mood [affective] disorder (principal); E44.1 Mild protein-calorie malnutrition; F29 Unspecified psychosis not due to a substance or known physiological condition; D72.819 Decreased white blood cell count, unspecified; F17.210 Nicotine dependence, cigarettes, uncomplicated; Z56.0 Unemployment, unspecified; F25.9 Schizoaffective disorder, unspecified; R73.9 Hyperglycemia, unspecified; F63.9 Impulse disorder, unspecified; F10.20 Alcohol dependence, uncomplicated; Z68.22 Body mass index [BMI] 22.0-22.9, adult
CPT/HCPCS: 36415-UA; 71045-TC; 80053-TC; 80061-TC; 80074-90; 82248-TC; 83036-90; 83690-TC; 83735-TC; 85025-TC; 90732; 93005; 94760; J1200; J1630; J2060; Z7610